=== PATIENT | male | born 1945 | race Caucasian/White ===

== ENCOUNTER 2023-06-25 06:49 | Outpatient (REF) | payer MEDICARE, SELFPAY | END 2023-06-25 06:50 | disposition home or self-care (01) | LOC: HO.HOSX 06:49 | PROVIDERS: Visit Provider Orthopaedic Surgery | DX: M17.12 Unilateral primary osteoarthritis, left knee (principal) | CPT/HCPCS: 20610; 73562; 99202; J3301 ==

== ENCOUNTER 2023-06-25 14:39 | Outpatient (AMB) | payer MEDICARE, SELFPAY ==
--- NOTE | 2023-06-25 14:45 | MHC.OFFVIS ---
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 Rockwell for his left knee. The patient describes his left knee pain as sharp and severe in nature. His pain has gotten worse over the last few years in spite of continued non operative treatments. He has done physical therapy which aggravated his pain. He has also tried Tylenol and anti-inflammatory medicines which gave him minimal relief. He has had cortisone injections as well as viscosupplementation injections which gave him only mild relief. The patient has difficulty walking even short distances because of his pain. At this point is left knee pain is interfering with his activities of daily living and his ability to sleep well through the night. Allergies No Known Allergies Allergy (Verified 06/25/23 14:48) PFSH Surgical History (Updated 06/25/23 @ 14:50 by Gloria De Leon CMA) History of Achilles tendon repair Hx of laminectomy History of arthroscopy of right knee S/P left knee arthroscopy H/O wrist surgery Social History (Updated 06/25/23 @ 14:51 by Gloria De Leon CMA) Patient Tobacco Use Status: Never used Tobacco Current occupational status: retired Physical Exam Vital Signs: BMI result Body Mass Index 21.8 Const Other: Well-nourished well-developed very friendly male awake alert and oriented x3 in no acute distress Extrem Other: Bilateral lower extremity examination shows good capillary refill, no skin lesions noted, normal sensation light touch Left knee examination shows a mild effusion, palpable crepitus with range of motion, pain with range of motion, range of motion from -3 degrees to 115 degrees, no instability Office Procedures Joint Injection/Drain Joint Injection/Drain Primary Site: left knee Prep: site was prepped using aseptic technique Injected: 40 mg of, Kenalog and 1% plain lidocaine Procedure: The patient tolerated the procedure well Coding 87513 - Large joint Procedure code (CPT) selection complete Results Reviewed Results Reviewed: 06/25/23 14:54 Lidocaine HCl 2 % MPF [Xylocaine 2 % MPF] 5 ml .ROUTE .[facility] 06/25/23 14:55 Triamcinolone Acetonide [Kenalog-40] 40 mg .ROUTE .[facility] X-rays of the patient's left knee show severe joint space narrowing with grade 4 anlb-in-uvhx arthritis, subchondral sclerosis, osteophyte formation, no acute bony abnormalities Assessment & Plan Assessment & Plan (1) Arthritis of left knee: Code(s): M17.12 - Unilateral primary osteoarthritis, left knee Plan: Mr. Orantes presents with progressively worsening left knee pain due to severe degenerative joint disease. I had a lengthy discussion with the patient regarding the treatment options. The risks and benefits of a cortisone injection were discussed at length with the patient. The patient wished to proceed. Prior to the injection I did aspirate 3 cc of clear fluid from his knee. He tolerated the injection well. If he does not get lasting relief from the injection he is considering undergoing left total knee replacement surgery later this year or early next year. He will contact my office to pick a surgery date it do so. Otherwise I will see him back on as basis. Feel free to call me at any time should questions regarding his orthopedic management arise. I spent 22 minutes in reviewing the patient's records and imaging studies, seeing the patient and documenting in the medical record. Orders: Orders AMB Joint Injection/Aspiration 06/25/23 M17.12 - Unilateral primary osteoarthritis, left knee XR knee LT 3V 06/25/23 M25.562 - Pain in left knee Coding Level of Care Code Est Pt Level 2 (88995) Diagnoses Arthritis of left knee M17.12 CPT Codes Coding - 97935 Large joint: 89321 - Large joint ([id number])
[2023-06-25 14:47] VITALS: BMI 21.8
== END 2023-06-25 15:31 | disposition home or self-care (01) ==
PROVIDERS: PCP Physician Assistant Medical; Visit Provider Orthopaedic Surgery
DX: M17.12 Unilateral primary osteoarthritis, left knee (principal)
CPT/HCPCS: 20610; 99204; 99214